=== PATIENT | female | born 1960 | race Caucasian/White ===

== ENCOUNTER 2017-03-02 17:19 | Emergency (ER) | payer BC ==
--- NOTE | 2017-03-02 17:47 | Emergency Department Record ---
History of Present Illness - General Chief complaint: ENT Stated complaint: POSSIBLE EAR INFECTION Time Seen by Provider: 03/02/17 17:31 Source: Patient Mode of Arrival: Ambulatory Limitations: No limitations - History of Present Illness Initial comments: The patient is here due to L ear and throat pain for 2-3 days. She denies any cough, fever, or chills but has had mild head congestion. The patient does have a hx of L ear tinnitis and is normally unable to clear the L ear with blowing her nose. She is concerned that she has a L ear infection. MD complaint: Other Onset/Timin -: Days(s) Location: L ear Severity: Mild Severity scale (1-10): 3 Quality: Other Consistency: Constant Improves with: None Worsens with: None Associated Symptoms: Sore throat, Tinnitus - Related Data Previous Rx's Medication Instructions Recorded Amoxicillin 500Mg Capsule [Amoxil] 500 mg PO TID 30 Days #30 tab 03/02/17 Prednisone [Prednisone 20Mg] 40 mg PO DAILY #10 tab 03/02/17 Allergies Allergy/AdvReac Type Severity Reaction Status Date / Time morphine Allergy NAUSEA AND Verified 03/02/17 17:30 VOMITING Travel Screening - Travel/Exposure Within Last 30 Days Have you traveled within the last 30 days?: No Review of Systems Constitutional: Denies: Chills, Fever Eyes: Denies: Eye discharge ENT: Reports: Congestion, Ear pain Respiratory: Denies: Cough, Dyspnea Past Medical History - SOCIAL HISTORY Smoking Status: Never smoker Alcohol Use: None Drug Use: None - RESPIRATORY Hx Respiratory Disorders: No - CARDIOVASCULAR Hx Cardio Disorders: No - NEURO Hx Neuro Disorders: No - GI Hx GI Disorders: No - Hx Genitourinary Disorders: No - ENDOCRINE Hx Endocrine Disorders: No - MUSCULOSKELETAL Hx Musculoskeletal Disorders: No - PSYCH Hx Psych Problems: No - HEMATOLOGY/ONCOLOGY Hx Hematology/Oncology Disorders: No Family Medical History Any Significant Family History?: No Physical Exam - General General Appearance: Alert, Oriented x3, Cooperative, No acute distress - Head Head exam: Atraumatic, Normocephalic, Normal inspection - Eye Eye exam: Normal appearance, PERRL - ENT ENT exam: negative: Normal exam, Normal orophraynx, TM's normal bilaterally ( The L TM may have a mild effusion.) Throat exam: Tonsillar erythema. negative: Normal inspection, Tonsillomegaly, Tonsillar exudate, R peritonsillar mass, L peritonsillar mass - Neck Neck exam: Normal inspection, Full ROM. negative: Lymphadenopathy, Meningismus , Tenderness - Respiratory Respiratory exam: Normal lung sounds bilaterally. negative: Respiratory distress - Cardiovascular Cardiovascular Exam: Regular rate, Normal rhythm, Normal heart sounds Course Vital Signs 03/02/17 17:22 Temperature 99.0 F Pulse Rate 84 Respiratory 14 Rate Blood Pressure 120/65 Pulse Ox 95 - Reevaluation(s) Reevaluation #1: I explained to the patient that it appears that she has a viral URI. We will add Prednisone to the patient's Flonase and Zyrtec-D and will have her F/U with her PCP next week if not better. If her ear pain worsens or it it not better in 3 days she is to take the script for AMox. that we will give her. 03/02/17 17:45 03/02/17 18:19 Disposition Disposition: Discharge Clinical Impression: Upper respiratory infection Qualifiers: URI type: unspecified URI Qualified Code(s): J06.9 - Acute upper respiratory infection, unspecified Disposition: Home, Self-Care Condition: (2) Stable Instructions: Upper Respiratory Infection (ED) Additional Instructions: Please continue your home medicines and add the Prednisone as directed for 5 days. Please take the AMox. if the L ear is not better in 2-3 days or if your symptoms worsen. Please see your PCP if not better in 3-4 days. Prescriptions: Amoxicillin 500Mg Capsule [Amoxil] 500 mg PO TID 30 Days #30 tab Prednisone [Prednisone 20Mg] 40 mg PO DAILY #10 tab Forms: Patient Portal Access Time of Disposition: 17:49 Quality - Quality Measures Quality Measures: N/A - Blood Pressure Screening View Details: Yes Does Patient Have Any of the Following: No Blood Pressure Classification: Pre-Hypertensive BP Reading Systolic Measurement: 120 Diastolic Measurement: 65 Screening for High Blood Pressure: < Pre-Hypertensive BP, F/U Documented > [ [id number]] Pre-Hypertensive Follow-up Interventions: Referral to alternative/primary care provider.
== END 2017-03-02 17:56 | disposition home or self-care (01) ==
LOC: ER 17:19
DX: J06.9 Acute upper respiratory infection, unspecified (principal); H92.02 Otalgia, left ear
CPT/HCPCS: 99282